=== PATIENT | male | born 1960 | race American Indian/Alaskan Native ===

== ENCOUNTER 2021-02-14 12:42 | Inpatient (IN) | payer BC ==
[2021-02-14] MEDS ORDERED: ASPIRIN 325 MG TAB PO ONE (12:48)
--- NOTE | 2021-02-14 13:27 | XRay Report ---
CHEST 2 VIEWS INDICATION / CLINICAL INFORMATION: Chest pain starting last night. COMPARISON: None available. FINDINGS: SUPPORT DEVICES: None. HEART / MEDIASTINUM: The heart size and pulmonary vasculature are normal. There is mild aortic tortuo sity without evidence of aneurysm. LUNGS / PLEURA: No significant pulmonary or pleural abnormality. No pneumothorax. ADDITIONAL FINDINGS: No significant additional findings. IMPRESSION: No acute findings. Signer Name: Lon Corrales MD Signed: 02/14/2021 1:22 PM Workstation Name: [id number]
[2021-02-14 13:47] LABS: Alanine Aminotransferase 16 units/L (7-56); BUN/Creatinine Ratio 13; Blood Urea Nitrogen 13 mg/dL (9-20); Calcium 8.8 mg/dL (8.4-10.2); Hemolysis Index 20
[2021-02-14 13:49] LABS: Eosinophils # (Auto) 0.1 K/mm3 (0.0-0.4); Eosinophils % (Auto) 1.9 % (0.0-4.3); Hematocrit 39.4 % (35.5-45.6); Mean Corpuscular HGB Conc 33 % (32-34); Mean Corpuscular Volume 81 fl (84-94); Monocytes # (Auto) 0.4 K/mm3 (0.0-0.8); Red Cell Distribution Width 13.8 % (13.2-15.2)
[2021-02-14 13:58] LABS: Lymphocytes # (Auto) 2.1 K/mm3 (1.2-5.4)
[2021-02-14 14:02] LABS: Basophils % (Auto) 0.4 % (0.0-1.8); Lymphocytes % (Auto) 42.7 % (13.4-35.0); Platelet Count 154 K/mm3 (140-440)
[2021-02-14] MEDS ORDERED: ALUM-MAG HYDROXIDE-SIMETHICONE 200-200-20MG/5ML ORAL LIQD 30 ML PO ONE (14:10)
[2021-02-14] MEDS ORDERED: LIDOCAINE VISCOUS 2% 15 ML ORAL LIQD PO ONE (14:10)
--- NOTE | 2021-02-14 14:14 | Emergency Department Report ---
ED Chest Pain HPI - General Chief Complaint: Chest Pain Stated Complaint: CHEST PAIN Time Seen by Provider: 02/14/21 14:00 Source: patient Mode of arrival: Ambulatory Limitations: No Limitations - History of Present Illness Initial Comments: This is a 60-year-old male presents to the emergency department with midsternal chest pain that started last night. It has been going on since but the intensity waxes and wanes. He denies any nausea, vomiting, shortness of breath, radiation of pain, back pain, diaphoresis. He has a history of asthma. He santiago es any tobacco or illicit drug use. He has not taken anything for his symptoms prior to presentation. He denies any family history of early heart attack or cardiac events. Severity scale (0 -10): 8 - Related Data Allergies Allergy/AdvReac Type Severity Reaction Status Date / Time No Known Allergies Allergy Unverified 02/14/21 12:44 Heart Score - HEART Score History: Moderately suspicious EKG: Normal Age: 45-65 Risk factors: No known risk factors Troponin: < normal limit HEART Score: 2 - EKG Read Time Time EKG Completed: 12:50 EKG Read Time: 12:55 ED Review of Systems ROS: Stated complaint: CHEST PAIN Other details as noted in HPI Comment: All other systems reviewed and negative Constitutional: denies: chills, fever Eyes: denies: eye pain, vision change ENT: denies: ear pain, throat pain Respiratory: denies: cough, shortness of breath Cardiovascular: chest pain. denies: palpitations Gastrointestinal: denies: abdominal pain, vomiting Genitourinary: denies: dysuria, discharge Musculoskeletal: denies: back pain, arthralgia Skin: denies: rash, lesions Neurological: denies: headache, weakness ED Past Medical Hx - Past Medical History Hx Asthma: Yes - Surgical History Past Surgical History?: No - Social History Smoking Status: Never Smoker ED Physical Exam - General Limitations: No Limitations - Other Other exam information: GENERAL: The patient is well-developed well-nourished. HENT: Normocephalic. Atraumatic. Patient has moist mucous membranes. EYES: Extraocular motions are intact. NECK: Supple. Trachea is midline. CHEST/LUNGS: Clear to auscultation. There is no respiratory distress noted. HEART/CARDIOVASCULAR: Regular. There is no tachycardia. There is no murmur. ABDOMEN: Abdomen is soft, nontender. Patient has normal bowel sounds. There is no abdominal distention. SKIN: Skin is warm and dry. NEURO: The patient is awake, alert, and oriented. The patient is cooperative. The patient has no focal neurologic deficits. Normal speech. MUSCULOSKELETAL: There is no tenderness or deformity. There is no limitation range of motion. ED Course Vital Signs 02/14/21 02/14/21 02/14/21 12:45 14:06 14:15 Temperature 98.3 F Pulse Rate 57 L 59 L 57 L Respiratory 20 12 21 Rate Blood Pressure 129/74 Blood Pressure 123/79 [Right] O2 Sat by Pulse 100 97 98 Oximetry 02/14/21 16:02 Temperature Pulse Rate 56 L Respiratory Rate Blood Pressure 144/55 Blood Pressure [Right] O2 Sat by Pulse Oximetry PAULETTE score - Paulette Score Age > 65: (0) No Aspirin use within the Past 7 Days: (0) No 3 or more CAD Risk Factors: (0) No 2 or more Angina events in past 24 hrs: (1) Yes Known CAD with more than 50% Stenosis: (0) No Elevated Cardiac Markers: (0) No ST Deviation Greater than 0.5mm: (0) No PAULETTE Score: 1 ED Medical Decision Making - Lab Data Result diagrams: 02/14/21 13:13 02/14/21 13:13 - EKG Data -: EKG Interpreted by Me EKG shows normal: sinus rhythm (PACs), axis, intervals, QRS complexes, ST-T waves Rate: bradycardia (58 bpm) - EKG Data When compared to previous EKG there are: previous EKG unavailable Interpretation: normal EKG (PACs, very mild bradycardia) - Radiology Data Radiology results: image reviewed interpreted by me: Chest x-ray does not show any acute process. There are no pleural effusions, obvious pneumonia and there is no pneumothorax. - Medical Decision Making This patient presents to the emergency department with complaint of midsternal chest pain that has been going on since last night. EKG does not show any morphology consistent with ST elevation myocardial infarction. Chest x-ray does not show any pneumonia, pleural effusions, pneumothorax, widened mediastinum, or any other acute process. The patient's labs have been unremarkable thus far including CBC, metabolic p libra and first troponin is negative. The second troponin is within normal limits but it has started to trend upwards from less than 0.01, now up to 0.019. The patient's chest pain is not reproducible to palpation of the chest wall. Given that the pain started after eating dinner and is midsternal, I attempted to treat a possible GI etiology with a GI cocktail, without any relief. Now, given that the troponin is starting to trend upwards, and the patient still complains of 7 out of 10 chest pain, the patient will be admitted to the hospital for further evaluation. He has been accepted for admission by the hospitalist, Dr. Pennington. Critical Care Time: No Critical care attestation.: If time is entered above; I have spent that time in minutes in the direct care of this critically ill patient, excluding procedure time. ED Disposition Clinical Impression: Acute chest pain, Angina at rest Disposition: DC-01 TO HOME OR SELFCARE Is pt being admited?: No Condition: Stable Instructions: Chest Pain (ED) Time of Disposition: 16:08
[2021-02-14] MEDS ORDERED: NITROGLYCERIN 0.4 MG TAB SUBL SL ONE (15:44)
[2021-02-14 19:51] LABS: Chol/HDL Ratio 2.88 %
[2021-02-14] MEDS ORDERED: HYDROmorphone 2 MG/1 ML INJ IV ONE (21:35)
[2021-02-14] MEDS ORDERED: ONDANSETRON 4 MG/2 ML INJ IV ONE (21:36)
--- NOTE | 2021-02-14 22:15 | History and Physical Report ---
History of Present Illness Date of examination: 02/14/21 Date of admission: 02/14/21 16:08 Chief complaint: Chest pain since last night. History of present illness: This is a 60-year-old male presents to emergency department with Chest pain since last night. Chest pain is intermittent in nature. No diaphoresis no shortness of breath. No radiation. No exacerbating or precipitating factors. Chest pain is about 5 on a scale of 1-10. Exacerbation is somewhat a accentuating factor. Rest is a relieving factor. No fever or chills. No exposure to coronavirus. Heart Score - HEART Score History: Moderately suspicious EKG: Normal Age: 45-65 Risk factors: No known risk factors Troponin: < normal limit HEART Score: 2 - EKG Read Time Time EKG Completed: 12:50 EKG Read Time: 12: - Past Medical History --Asthma: Yes - Surgical History Past Surgical History?: No - Social History Smoking Status: Never Smoker Review of Systems ROS: Stated complaint: CHEST PAIN Other details as noted in HPI Comment: All other systems reviewed and negative Constitutional: denies: chills, fever Eyes: denies: eye pain, vision change ENT: denies: ear pain, throat pain Respiratory: denies: cough, shortness of breath Cardiovascular: chest pain. denies: palpitations Gastrointestinal: denies: abdominal pain, vomiting Genitourinary: denies: dysuria, discharge Musculoskeletal: denies: back pain, arthralgia Skin: denies: rash, lesions Neurological: denies: headache, weakness Medications and Allergies Allergies Allergy/AdvReac Type Severity Reaction Status Date / Time No Known Allergies Allergy Unverified 02/14/21 12:44 Home Medications Medication Instructions Recorded Confirmed Last Taken Type Budesonide/Formoterol Fumarate 1 pfu INHALATION BID 02/15/21 02/15/21 2 Days Ago History [Budesonide-Formoterol 160-4.5] ~02/13/21 Montelukast [Singulair] 10 mg PO BID 02/15/21 02/15/21 2 Days Ago History ~02/13/21 Exam - Constitutional Vitals: Temp Pulse Resp BP Pulse Ox 98.3 F 56 L 14 144/55 94 02/14/21 12:45 02/14/21 16:02 02/14/21 15:45 02/14/21 19:30 02/14/21 19:30 General appearance: Present: no acute distress, well-nourished - EENT Eyes: Present: PERRL ENT: hearing intact, clear oral mucosa - Neck Neck: Present: supple, normal ROM - Respiratory Respiratory effort: normal Respiratory: bilateral: CTA - Cardiovascular Heart rate: 78 Rhythm: regular Heart Sounds: Present: S1 & S2. Absent: rub, click - Extremities Extremities: no ischemia, pulses intact, pulses symmetrical, No edema Peripheral Pulses: within normal limits - Abdominal General gastrointestinal: Present: soft, non-tender, non-distended, normal bowel sounds Male genitourinary: Present: normal - Integumentary Integumentary: Present: clear, warm, dry - Musculoskeletal Musculoskeletal: gait normal, strength equal bilaterally - Psychiatric Psychiatric: appropriate mood/affect, intact judgment & insight - Neurologic Neurologic: CNII-XII intact, moves all extremities - Allied Health Allied health notes reviewed: nursing, case management HEART Score - HEART Score EKG: Normal Age: 45-65 Risk factors: No known risk factors Troponin: Troponin T 0.083 ng/mL (0.00-0.029) H D 02/14/21 19:03 Troponin: < normal limit - Critical Actions Critical Actions: 0-3 pts:0.9-1.7%risk of adverse cardiac event.Candidate for discharge Results - Labs CBC & Chem 7: 02/15/21 05:18 02/15/21 05:18 Labs: Laboratory Last Values WBC 5.0 K/mm3 (4.5-11.0) 02/14/21 13:13 RBC 4.90 M/mm3 (3.65-5.03) 02/14/21 13:13 Hgb 13.0 gm/dl (11.8-15.2) 02/14/21 13:13 Hct 39.4 % (35.5-45.6) 02/14/21 13:13 MCV 81 fl (84-94) L 02/14/21 13:13 MCH 27 pg (28-32) L 02/14/21 13:13 MCHC 33 % (32-34) 02/14/21 13:13 RDW 13.8 % (13.2-15.2) 02/14/21 13:13 Plt Count 154 K/mm3 (140-440) 02/14/21 13:13 Lymph % (Auto) 42.7 % (13.4-35.0) H 02/14/21 13:13 [place] % (Auto) 8.0 % (0.0-7.3) H 02/14/21 13:13 Eos % (Auto) 1.9 % (0.0-4.3) 02/14/21 13:13 Baso % (Auto) 0.4 % (0.0-1.8) 02/14/21 13:13 Lymph # (Auto) 2.1 K/mm3 (1.2-5.4) 02/14/21 13:13 [place] # (Auto) 0.4 K/mm3 (0.0-0.8) 02/14/21 13:13 Eos # (Auto) 0.1 K/mm3 (0.0-0.4) 02/14/21 13:13 Baso # (Auto) 0.0 K/mm3 (0.0-0.1) 02/14/21 13:13 Seg Neutrophils % 47.0 % (40.0-70.0) 02/14/21 13:13 Seg Neutrophils # 2.3 K/mm3 (1.8-7.7) 02/14/21 13:13 Sodium 136 mmol/L (137-145) L 02/14/21 13:13 Potassium 3.9 mmol/L (3.6-5.0) 02/14/21 13:13 Chloride 102.1 mmol/L (98-107) 02/14/21 13:13 Carbon Dioxide 24 mmol/L (22-30) 02/14/21 13:13 Anion Gap 14 mmol/L 02/14/21 13:13 BUN 13 mg/dL (9-20) 02/14/21 13:13 Creatinine 1.0 mg/dL (0.8-1.3) 02/14/21 13:13 Estimated GFR > 60 ml/min 02/14/21 13:13 BUN/Creatinine Ratio 13 % 02/14/21 13:13 Glucose 107 mg/dL (75-100) H 02/14/21 13:13 Calcium 8.8 mg/dL (8.4-10.2) 02/14/21 13:13 Total Bilirubin 0.60 mg/dL (0.1-1.2) 02/14/21 13:13 AST 24 units/L (5-40) 02/14/21 13:13 ALT 16 units/L (7-56) 02/14/21 13:13 Alkaline Phosphatase 108 units/L (35-129) 02/14/21 13:13 Troponin T 0.083 ng/mL (0.00-0.029) H D 02/14/21 19:03 Total Protein 6.7 g/dL (6.3-8.2) 02/14/21 13:13 Albumin 4.0 g/dL (3.9-5) 02/14/21 13:13 Albumin/Globulin Ratio 1.5 % 02/14/21 13:13 Triglycerides 56 mg/dL (2-149) 02/14/21 19:03 Cholesterol 179 mg/dL (50-199) 02/14/21 19:03 LDL Cholesterol Direct 113 mg/dL (50-130) 02/14/21 19:03 HDL Cholesterol 62 mg/dL (40-59) H 02/14/21 19:03 Cholesterol/HDL Ratio 2.88 % 02/14/21 19:03 Short CBC 02/14/21 02/15/21 Range/Units 13:13 05:18 WBC 5.0 7.8 (4.5-11.0) K/mm3 Hgb 13.0 12.4 (11.8-15.2) gm/dl Hct 39.4 37.3 (35.5-45.6) % Plt Count 154 141 (140-440) K/mm3 BMP 02/14/21 02/15/21 13:13 05:18 Sodium 136 L 138 Potassium 3.9 3.8 Chloride 102.1 102.7 Carbon Dioxide 24 26 BUN 13 10 Creatinine 1.0 0.9 Glucose 107 H 136 H Calcium 8.8 9.0 Cardiac Enzymes 02/14/21 02/14/21 02/14/21 Range/Units 13:13 15:09 19:03 Troponin T < 0.010 0.019 0.083 H D (0.00-0.029) ng/mL Liver Function 02/14/21 02/15/21 Range/Units 13:13 05:18 Total Bilirubin 0.60 0.80 (0.1-1.2) mg/dL AST 24 67 H (5-40) units/L ALT 16 19 (7-56) units/L Alkaline Phosphatase 108 99 (35-129) units/L Albumin 4.0 3.8 L (3.9-5) g/dL - Imaging and Cardiology EKG: report reviewed (Normal sinus rhythm no acute ST-T wave changes) Imaging and Cardiology: Chest x-ray No acute findings Assessment and Plan Advance Directives: Yes (full code) VTE prophylaxis?: Chemical Plan of care discussed with patient/family: Yes - Patient Problems (1) Acute coronary syndrome Current Visit: Yes Status: Acute Plan to address problem: Serial troponins and Lexiscan in the morning If the troponins are negative and Lexiscan cannot be done over the weekend patient may be discharged and outpatient Lexiscan was done and the buzzsaw operator on-call's office Second troponin is CK and CK-MB ordered for specificity (2) DVT prophylaxis Current Visit: Yes Status: Acute Plan to address problem: On heparin and GI prophylaxis
[2021-02-14] MEDS ORDERED: oxyCODONE /ACETAMINOPHEN 5-325MG TAB PO PRN (22:16)
[2021-02-14] MEDS ORDERED: METOCLOPRAMIDE 10 MG/2 ML INJ IV PRN (22:16)
[2021-02-14] MEDS ORDERED: ONDANSETRON 4 MG/2 ML INJ IV PRN (22:16)
[2021-02-14] MEDS ORDERED: HYDROmorphone 1 MG/1 ML INJ IV PRN (22:16)
[2021-02-14] MEDS ORDERED: ACETAMINOPHEN 325 MG TAB PO PRN (22:16)
[2021-02-14] MEDS ORDERED: SODIUM CHLORIDE 0.9% 1000 ML 1,000 ML IV SCH (22:30)
[2021-02-14] MEDS: FAMOTIDINE 20 MG/2 ML INJ IV SCH (22:48)
[2021-02-15 05:55] LABS: Basophils % (Auto) 0.3 % (0.0-1.8); Eosinophils % (Auto) 0.1 % (0.0-4.3); Hematocrit 37.3 % (35.5-45.6); Hemoglobin 12.4 gm/dl (11.8-15.2); Lymphocytes # (Auto) 1.6 K/mm3 (1.2-5.4); Lymphocytes % (Auto) 20.3 % (13.4-35.0); Mean Corpuscular HGB Conc 33 % (32-34); Mean Corpuscular Volume 81 fl (84-94); Monocytes # (Auto) 0.5 K/mm3 (0.0-0.8); Monocytes % (Auto) 6.1 % (0.0-7.3); Platelet Count 141 K/mm3 (140-440); Red Blood Count 4.62 M/mm3 (3.65-5.03)
[2021-02-15 06:18] LABS: Alanine Aminotransferase 19 units/L (7-56); Albumin 3.8 g/dL (3.9-5); BUN/Creatinine Ratio 11; Blood Urea Nitrogen 10 mg/dL (9-20); Hemolysis Index 5
[2021-02-15] MEDS: FAMOTIDINE 20 MG/2 ML INJ IV SCH (09:54)
--- NOTE | 2021-02-15 10:14 | Progress Note ---
Assessment and Plan Assessment and plan: --Non-ST elevation LA Current Visit: Yes Status: Acute Worsening troponin levels Aspirin, no beta-blockers due to bradycardia Heart rate in 50s, GRACIELA inhibitors, nitrates Statin and morphine Serial cardiac enzymes, serial EKGs Echocardiogram for LV function ejection fraction Admitting physician requested Lexiscan[not done during the weekend] Cardiology consult[discussed with Dr. Franco Méndez [facility]] --Bradycardia; Current Visit: Yes Status: Acute Heart rate in 50s, hold beta-blockers Closely monitor, check thyroid panel --Dyslipidemia; Current Visit: Yes Status: Acute Lipitor, recommend low-cholesterol diet --GERD Current Visit: Yes Status: Acute IV Pepcid, supportive care --Obesity ; BMI 31.4 Current Visit: Yes Status: Acute Patient may need weight reduction when medically stable -- DVT prophylaxis Current Visit: Yes Status: Acute On heparin and GI prophylaxis Closely monitor the patient and adjust the management as needed Follow cardiology evaluation and recommendations History Interval history: I have seen and examined the patient at the bedside Patient's chart and medications reviewed Admitted with chest pain, scheduled for Lexiscan stress test However the test is not done today being the weekend Patient complains of retrosternal discomfort intermittent Feels probably indigestion Vital signs noted Hospitalist Physical - Constitutional Vitals: Temp Pulse Resp BP Pulse Ox 98.0 F 57 L 20 108/60 98 02/15/21 07:35 02/15/21 07:35 02/15/21 07:35 02/15/21 07:35 02/15/21 07:35 General appearance: Present: no acute distress, well-nourished - EENT Eyes: Present: PERRL, EOM intact - Neck Neck: Present: supple, normal ROM - Respiratory Respiratory effort: normal Respiratory: bilateral: diminished, negative: rales, rhonchi, wheezing - Cardiovascular Rhythm: regular Heart Sounds: Present: S1 & S2 - Extremities Extremities: no ischemia, No edema - Abdominal General gastrointestinal: soft, non-tender, non-distended - Integumentary Integumentary: Present: clear, warm - Psychiatric Psychiatric: appropriate mood/affect, cooperative - Neurologic Neurologic: moves all extremities HEART Score - HEART Score EKG: Normal Age: 45-65 Risk factors: No known risk factors Troponin: Troponin T 0.083 ng/mL (0.00-0.029) H D 02/14/21 19:03 Troponin: < normal limit - Critical Actions Critical Actions: 0-3 pts:0.9-1.7%risk of adverse cardiac event.Candidate for discharge Results - Labs CBC & Chem 7: 02/15/21 05:18 02/15/21 05:18 Labs: Laboratory Last Values WBC 7.8 K/mm3 (4.5-11.0) 02/15/21 05:18 RBC 4.62 M/mm3 (3.65-5.03) 02/15/21 05:18 Hgb 12.4 gm/dl (11.8-15.2) 02/15/21 05:18 Hct 37.3 % (35.5-45.6) 02/15/21 05:18 MCV 81 fl (84-94) L 02/15/21 05:18 MCH 27 pg (28-32) L 02/15/21 05:18 MCHC 33 % (32-34) 02/15/21 05:18 RDW 14.0 % (13.2-15.2) 02/15/21 05:18 Plt Count 141 K/mm3 (140-440) 02/15/21 05:18 Lymph % (Auto) 20.3 % (13.4-35.0) 02/15/21 05:18 [place] % (Auto) 6.1 % (0.0-7.3) 02/15/21 05:18 Eos % (Auto) 0.1 % (0.0-4.3) 02/15/21 05:18 Baso % (Auto) 0.3 % (0.0-1.8) 02/15/21 05:18 Lymph # (Auto) 1.6 K/mm3 (1.2-5.4) 02/15/21 05:18 [place] # (Auto) 0.5 K/mm3 (0.0-0.8) 02/15/21 05:18 Eos # (Auto) 0.0 K/mm3 (0.0-0.4) 02/15/21 05:18 Baso # (Auto) 0.0 K/mm3 (0.0-0.1) 02/15/21 05:18 Seg Neutrophils % 73.2 % (40.0-70.0) H 02/15/21 05:18 Seg Neutrophils # 5.7 K/mm3 (1.8-7.7) 02/15/21 05:18 Sodium 138 mmol/L (137-145) 02/15/21 05:18 Potassium 3.8 mmol/L (3.6-5.0) 02/15/21 05:18 Chloride 102.7 mmol/L (98-107) 02/15/21 05:18 Carbon Dioxide 26 mmol/L (22-30) 02/15/21 05:18 Anion Gap 13 mmol/L 02/15/21 05:18 BUN 10 mg/dL (9-20) 02/15/21 05:18 Creatinine 0.9 mg/dL (0.8-1.3) 02/15/21 05:18 Estimated GFR > 60 ml/min 02/15/21 05:18 BUN/Creatinine Ratio 11 % 02/15/21 05:18 Glucose 136 mg/dL (75-100) H 02/15/21 05:18 Hemoglobin A1c 5.6 % (4-6) 02/15/21 05:18 Calcium 9.0 mg/dL (8.4-10.2) 02/15/21 05:18 Total Bilirubin 0.80 mg/dL (0.1-1.2) 02/15/21 05:18 AST 67 units/L (5-40) H 02/15/21 05:18 ALT 19 units/L (7-56) 02/15/21 05:18 Alkaline Phosphatase 99 units/L (35-129) 02/15/21 05:18 Troponin T 0.083 ng/mL (0.00-0.029) H D 02/14/21 19:03 Total Protein 6.2 g/dL (6.3-8.2) L 02/15/21 05:18 Albumin 3.8 g/dL (3.9-5) L 02/15/21 05:18 Albumin/Globulin Ratio 1.6 % 02/15/21 05:18 Triglycerides 56 mg/dL (2-149) 02/14/21 19:03 Cholesterol 179 mg/dL (50-199) 02/14/21 19:03 LDL Cholesterol Direct 113 mg/dL (50-130) 02/14/21 19:03 HDL Cholesterol 62 mg/dL (40-59) H 02/14/21 19:03 Cholesterol/HDL Ratio 2.88 % 02/14/21 19:03 Ann/IV: Voiding Method Toilet Active Medications - Current Medications Current Medications: Generic Name Dose Route Start Last Admin Trade Name Freq PRN Reason Stop Dose Admin Acetaminophen 650 mg 02/14/21 22:16 Acetaminophen 325 Mg Tab PO Q4H PRN Pain MILD(1-3)/Fever >100.5/SAGE Famotidine 20 mg 02/14/21 23:00 02/15/21 09:54 Famotidine 20 Mg/2 Ml Inj IV 20 mg BID WATSON Administration Hydromorphone HCl 0.5 mg 02/14/21 22:16 Hydromorphone 1 Mg/1 Ml Inj IV Q3H PRN Pain , Severe (7-10) Sodium Chloride 1,000 mls @ 100 mls/hr 02/14/21 22:30 02/15/21 07:27 Nacl 0.9% 1000 Ml IV 100 mls/hr DIRECT WATSON Administration Metoclopramide HCl 10 mg 02/14/21 22:16 Metoclopramide 10 Mg/2 Ml Inj IV Q6H PRN Nausea And Vomiting Ondansetron HCl 4 mg 02/14/21 22:16 Ondansetron 4 Mg/2 Ml Inj IV Q8H PRN Nausea And Vomiting Oxycodone/Acetaminophen 1 tab 02/14/21 22:16 Oxycodone /Acetaminophen 5-325mg Tab PO Q6H PRN Pain, Moderate (4-6) Sodium Chloride 10 ml 02/15/21 10:00 Sodium Chloride 0.9% 10 Ml Flush Syringe IV BID WATSON Sodium Chloride 10 ml 02/14/21 22:16 Sodium Chloride 0.9% 10 Ml Flush Syringe IV PRN PRN LINE FLUSH
[2021-02-15 11:34] LABS: Creatine Kinase MB 61.3 ng/mL (0.0-4.0)
--- NOTE | 2021-02-15 12:51 | Consultation ---
History of Present Illness Consult date: 02/15/21 Consult reason: abnormal cardiac enzymes, chest pain History of present illness: The patient is a 60-year-old man who reports no significant cardiac or medical history, presented to the emergency room with 2 days of intermittent substernal chest pain associated with nausea and vomiting. In the emergency room, the ECG was a sinus bradycardia 58, otherwise normal ECG. Initial 2 cardiac enzymes were unremarkable, but on the third set, there was an elevation of his troponin level, suggesting a non-ST elevation myocardial infarction. The patient is currently chest pain-free, on telemetry unit looks and feels well, cardiac cons ultation was requested for further evaluation. Past History Past Medical History: other (No significant cardiac or medical history) Medications and Allergies Allergies Allergy/AdvReac Type Severity Reaction Status Date / Time No Known Allergies Allergy Unverified 02/14/21 12:44 Home Medications Medication Instructions Recorded Confirmed Last Taken Type Budesonide/Formoterol Fumarate 1 pfu INHALATION BID 02/15/21 02/15/21 2 Days Ago History [Budesonide-Formoterol 160-4.5] ~02/13/21 Montelukast [Singulair] 10 mg PO BID 02/15/21 02/15/21 2 Days Ago History ~02/13/21 Active Meds: Active Medications Acetaminophen (Acetaminophen 325 Mg Tab) 650 mg PO Q4H PRN PRN Reason: Pain MILD(1-3)/Fever >100.5/SAGE Aspirin (Aspirin Ec 325 Mg Tab) 325 mg PO QDAY [facility] Enoxaparin Sodium (Enoxaparin 100 Mg/1 Ml Inj) 90 mg 1 mg/kg (90 mg) SUB-Q Q12HR [facility]; Protocol Famotidine (Famotidine 20 Mg/2 Ml Inj) 20 mg IV BID [facility] Last Admin: 02/15/21 09:54 Dose: 20 mg Documented by: Hydromorphone HCl (Hydromorphone 1 Mg/1 Ml Inj) 0.5 mg IV Q3H PRN PRN Reason: Pain , Severe (7-10) Sodium Chloride (Nacl 0.9% 1000 Ml) 1,000 mls @ 100 mls/hr IV DIRECT [facility] Last Admin: 02/15/21 07:27 Dose: 100 mls/hr Documented by: Metoclopramide HCl (Metoclopramide 10 Mg/2 Ml Inj) 10 mg IV Q6H PRN PRN Reason: Nausea And Vomiting Ondansetron HCl (Ondansetron 4 Mg/2 Ml Inj) 4 mg IV Q8H PRN PRN Reason: Nausea And Vomiting Oxycodone/Acetaminophen (Oxycodone /Acetaminophen 5-325mg Tab) 1 tab PO Q6H PRN PRN Reason: Pain, Moderate (4-6) Sodium Chloride (Sodium Chloride 0.9% 10 Ml Flush Syringe) 10 ml IV BID WATSON Sodium Chloride (Sodium Chloride 0.9% 10 Ml Flush Syringe) 10 ml IV PRN PRN PRN Reason: LINE FLUSH Review of Systems Cardiovascular: chest pain, no orthopnea, no palpitations, no rapid/irregular heart beat, no edema, no syncope, no lightheadedness, no shortness of breath Physical Examination Vital Signs Temp Pulse Resp BP Pulse Ox 98.3 F 57 L 20 123/79 100 02/14/21 12:45 02/14/21 12:45 02/14/21 12:45 02/14/21 12:45 02/14/21 12:45 General appearance: no acute distress HEENT: Positive: PERRL Neck: Positive: neck supple Cardiac: Positive: Reg Rate and Rhythm Lungs: Positive: clear to auscultation Neuro: Positive: Grossly Intact Abdomen: Positive: Soft Male genitourinary: Positive: deferred Skin: Positive: Clear Extremities: Absent: edema Results 02/15/21 05:18 02/15/21 05:18 Cardiac Enzymes 02/14/21 02/15/21 02/15/21 Range/Units 13:13 05:18 10:56 AST 24 67 H (5-40) units/L CK-MB (CK-2) 61.3 H (0.0-4.0) ng/mL Lipids 02/14/21 Range/Units 19:03 Triglycerides 56 (2-149) mg/dL Cholesterol 179 (50-199) mg/dL HDL Cholesterol 62 H (40-59) mg/dL Cholesterol/HDL Ratio 2.88 % CBC 02/14/21 02/15/21 Range/Units 13:13 05:18 WBC 5.0 7.8 (4.5-11.0) K/mm3 RBC 4.90 4.62 (3.65-5.03) M/mm3 Hgb 13.0 12.4 (11.8-15.2) gm/dl Hct 39.4 37.3 (35.5-45.6) % Plt Count 154 141 (140-440) K/mm3 Lymph # (Auto) 2.1 1.6 (1.2-5.4) K/mm3 [place] # (Auto) 0.4 0.5 (0.0-0.8) K/mm3 Eos # (Auto) 0.1 0.0 (0.0-0.4) K/mm3 Baso # (Auto) 0.0 0.0 (0.0-0.1) K/mm3 Comprehensive Metabolic Panel 02/14/21 02/15/21 Range/Units 13:13 05:18 Sodium 136 L 138 (137-145) mmol/L Potassium 3.9 3.8 (3.6-5.0) mmol/L Chloride 102.1 102.7 (98-107) mmol/L Carbon Dioxide 24 26 (22-30) mmol/L BUN 13 10 (9-20) mg/dL Creatinine 1.0 0.9 (0.8-1.3) mg/dL Glucose 107 H 136 H (75-100) mg/dL Calcium 8.8 9.0 (8.4-10.2) mg/dL AST 24 67 H (5-40) units/L ALT 16 19 (7-56) units/L Alkaline Phosphatase 108 99 (35-129) units/L Total Protein 6.7 6.2 L (6.3-8.2) g/dL Albumin 4.0 3.8 L (3.9-5) g/dL EKG interpretations - Telemetry EKG Rhythm: Sinus Bradycardia Assessment and Plan - Patient Problems (1) Non-ST elevation myocardial infarction (NSTEMI) Current Visit: Yes Status: Acute Plan to address problem: The patient will be treated with subcutaneous Lovenox, aspirin, Plavix, topical nitrates and atorvastatin. He will be placed on bedrest with commode privileges. An echocardiogram will be done for left ventricular function and valvular function assessment. We will schedule a cardiac catheterization for Wednesday morning. We have avoided beta-blockers for now due to the patient's underlying sinus bradycardia.
[2021-02-15] MEDS ORDERED: SODIUM CHLORIDE 0.9% 500 ML 500 ML IV SCH (13:00)
[2021-02-15] MEDS ORDERED: CLOPIDOGREL 300 MG TAB PO ONE (14:00)
[2021-02-15] MEDS: PANTOPRAZOLE 40 MG TAB PO SCH (14:28)
[2021-02-15] MEDS: NITROGLYCERIN 2% OINT 1 GM TP SCH ×2 (14:28→18:34)
[2021-02-15] MEDS: ASPIRIN EC 325 MG TAB PO SCH (14:28)
[2021-02-15 14:36] LABS: Free T4 (Free Thyroxine) 0.87 ng/dL (0.76-1.46)
[2021-02-15] MEDS ORDERED: NON-FORMULARY EACH (Budesonide/Formoterol Fumarate [Budesonide-Formoterol 160-4.5] 10.2 GM INHALATION SCH (14:45)
[2021-02-15] MEDS: ARFORMOTEROL 15 MCG/2 ML NEBU IH SCH (20:45)
[2021-02-15] MEDS: BUDESONIDE 0.5 MG/2 ML NEBU IH SCH (20:45)
[2021-02-15] MEDS: ENOXAPARIN 100 MG/1 ML INJ SUB-Q SCH (22:41)
[2021-02-15] MEDS: MONTELUKAST 10 MG TAB PO SCH (22:42)
[2021-02-16 05:36] LABS: Hematocrit 40.1 % (35.5-45.6); Hemoglobin 13.2 gm/dl (11.8-15.2)
[2021-02-16 05:56] LABS: Creatine Kinase MB 18.7 ng/mL (0.0-4.0)
[2021-02-16] MEDS: NITROGLYCERIN 2% OINT 1 GM TP SCH ×3 (06:09→13:16)
[2021-02-16] MEDS: BUDESONIDE 0.5 MG/2 ML NEBU IH SCH ×2 (08:59→20:38)
[2021-02-16] MEDS: ARFORMOTEROL 15 MCG/2 ML NEBU IH SCH ×2 (08:59→20:38)
--- NOTE | 2021-02-16 09:08 | Progress Note ---
Assessment and Plan Assessment and plan: --Non-ST elevation [place] Current Visit: Yes Status: Acute Worsening troponin levels Aspirin, no beta-blockers due to bradycardia Heart rate in 50s, GRACIELA inhibitors, nitrates Statin and morphine Serial cardiac enzymes, serial EKGs Echocardiogram for LV function ejection fraction Cardiology following, possible left heart catheterization tomorrow 02/17/2021 N.p.o. from midnight --Bradycardia; Current Visit: Yes Status: Acute Heart rate in 50s, hold beta-blockers Closely monitor, check thyroid panel --Dyslipidemia; Current Visit: Yes Status: Acute Lipitor, recommend low-cholesterol diet --GERD Current Visit: Yes Status: Acute IV Pepcid, supportive care --Obesity ; BMI 31.4 Current Visit: Yes Status: Acute Patient may need weight reduction when medically stable -- DVT prophylaxis Current Visit: Yes Status: Acute On heparin and GI prophylaxis Closely monitor the patient and adjust the management as needed Possible heart cath tomorrow, n.p.o. from midnight Follow cardiology recommendations Plan of care reviewed with the patient and his nurse 02/16/2021; non-ST elevation MA, worsening cardiac enzymes On therapeutic dose Lovenox, cardiology scheduled for left heart catheterization tomorrow Continue current management History Interval history: I have seen and examined the patient at the bedside Patient's chart and medications reviewed Patient feels better denies chest pain or shortness of breath However patient's troponins are still elevated Cardiology evaluation noted and appreciated Possible heart cath tomorrow N.p.o. from midnight Vital signs noted Hospitalist Physical - Constitutional Vitals: Temp Pulse Resp BP Pulse Ox 98.8 F 58 L 20 94/56 97 02/16/21 07:57 02/16/21 07:57 02/16/21 07:57 02/16/21 07:57 02/16/21 07:57 General appearance: Present: no acute distress, well-nourished - EENT Eyes: Present: PERRL, EOM intact - Neck Neck: Present: supple, normal ROM - Respiratory Respiratory effort: normal Respiratory: bilateral: diminished, negative: rales, rhonchi, wheezing - Cardiovascular Rhythm: regular Heart Sounds: Present: S1 & S2 - Extremities Extremities: no ischemia, No edema - Abdominal General gastrointestinal: soft, non-tender, non-distended - Integumentary Integumentary: Present: clear, warm - Psychiatric Psychiatric: appropriate mood/affect, cooperative - Neurologic Neurologic: CNII-XII intact, moves all extremities HEART Score - HEART Score EKG: Normal Age: 45-65 Risk factors: No known risk factors Troponin: Troponin T 1.080 ng/mL (0.00-0.029) H* D 02/16/21 05:11 Troponin: < normal limit - Critical Actions Critical Actions: 0-3 pts:0.9-1.7%risk of adverse cardiac event.Candidate for discharge Results - Labs CBC & Chem 7: 02/16/21 05:11 02/15/21 05:18 Labs: Laboratory Last Values WBC 7.8 K/mm3 (4.5-11.0) 02/15/21 05:18 RBC 4.62 M/mm3 (3.65-5.03) 02/15/21 05:18 Hgb 13.2 gm/dl (11.8-15.2) 02/16/21 05:11 Hct 40.1 % (35.5-45.6) 02/16/21 05:11 MCV 81 fl (84-94) L 02/15/21 05:18 MCH 27 pg (28-32) L 02/15/21 05:18 MCHC 33 % (32-34) 02/15/21 05:18 RDW 14.0 % (13.2-15.2) 02/15/21 05:18 Plt Count 141 K/mm3 (140-440) 02/15/21 05:18 Lymph % (Auto) 20.3 % (13.4-35.0) 02/15/21 05:18 [place] % (Auto) 6.1 % (0.0-7.3) 02/15/21 05:18 Eos % (Auto) 0.1 % (0.0-4.3) 02/15/21 05:18 Baso % (Auto) 0.3 % (0.0-1.8) 02/15/21 05:18 Lymph # (Auto) 1.6 K/mm3 (1.2-5.4) 02/15/21 05:18 [place] # (Auto) 0.5 K/mm3 (0.0-0.8) 02/15/21 05:18 Eos # (Auto) 0.0 K/mm3 (0.0-0.4) 02/15/21 05:18 Baso # (Auto) 0.0 K/mm3 (0.0-0.1) 02/15/21 05:18 Seg Neutrophils % 73.2 % (40.0-70.0) H 02/15/21 05:18 Seg Neutrophils # 5.7 K/mm3 (1.8-7.7) 02/15/21 05:18 Sodium 138 mmol/L (137-145) 02/15/21 05:18 Potassium 3.8 mmol/L (3.6-5.0) 02/15/21 05:18 Chloride 102.7 mmol/L (98-107) 02/15/21 05:18 Carbon Dioxide 26 mmol/L (22-30) 02/15/21 05:18 Anion Gap 13 mmol/L 02/15/21 05:18 BUN 10 mg/dL (9-20) 02/15/21 05:18 Creatinine 0.9 mg/dL (0.8-1.3) 02/15/21 05:18 Estimated GFR > 60 ml/min 02/15/21 05:18 BUN/Creatinine Ratio 11 % 02/15/21 05:18 Glucose 136 mg/dL (75-100) H 02/15/21 05:18 Hemoglobin A1c 5.6 % (4-6) 02/15/21 05:18 Calcium 9.0 mg/dL (8.4-10.2) 02/15/21 05:18 Magnesium 1.70 mg/dL (1.7-2.3) 02/16/21 05:11 Total Bilirubin 0.80 mg/dL (0.1-1.2) 02/15/21 05:18 AST 67 units/L (5-40) H 02/15/21 05:18 ALT 19 units/L (7-56) 02/15/21 05:18 Alkaline Phosphatase 99 units/L (35-129) 02/15/21 05:18 Total Creatine Kinase 637 units/L (55-170) H 02/16/21 05:11 CK-MB (CK-2) 18.7 ng/mL (0.0-4.0) H 02/16/21 05:11 CK-MB (CK-2) Rel Index 2.9 (0-4) 02/16/21 05:11 Troponin T 1.080 ng/mL (0.00-0.029) H* D 02/16/21 05:11 Total Protein 6.2 g/dL (6.3-8.2) L 02/15/21 05:18 Albumin 3.8 g/dL (3.9-5) L 02/15/21 05:18 Albumin/Globulin Ratio 1.6 % 02/15/21 05:18 Triglycerides 56 mg/dL (2-149) 02/14/21 19:03 Cholesterol 179 mg/dL (50-199) 02/14/21 19:03 LDL Cholesterol Direct 113 mg/dL (50-130) 02/14/21 19:03 HDL Cholesterol 62 mg/dL (40-59) H 02/14/21 19:03 Cholesterol/HDL Ratio 2.88 % 02/14/21 19:03 TSH 0.641 mlU/mL (0.270-4.200) 02/15/21 13:28 Free T4 0.87 ng/dL (0.76-1.46) 02/15/21 13:28 Ann/IV: Voiding Method Toilet Active Medications - Current Medications Current Medications: Generic Name Dose Route Start Last Admin Trade Name Freq PRN Reason Stop Dose Admin Acetaminophen 650 mg 02/14/21 22:16 Acetaminophen 325 Mg Tab PO Q4H PRN Pain MILD(1-3)/Fever >100.5/SAGE Arformoterol Tartrate 15 mcg 02/15/21 20:00 02/16/21 08:59 Arformoterol 15 Mcg/2 Ml Nebu IH 15 mcg Q12HRT [facility]AT[facility] Administration Aspirin 325 mg 02/15/21 13:00 02/15/21 14:28 Aspirin Ec 325 Mg Tab PO 325 mg QDAY [facility] Administration Atorvastatin Calcium 40 mg 02/15/21 22:00 02/15/21 22:42 Atorvastatin 40 Mg Tab PO 40 mg QHS [facility] Administration Budesonide 1 mg 02/15/21 20:00 02/16/21 08:59 Budesonide 0.5 Mg/2 Ml Nebu IH 1 mg Q12HRT [facility] Administration Clopidogrel Bisulfate 75 mg 02/16/21 10:00 Clopidogrel 75 Mg Tab PO QDAY WATSON Enoxaparin Sodium 90 mg 02/15/21 22:00 02/15/21 22:41 Enoxaparin 100 Mg/1 Ml Inj 1 mg/kg (90 mg) 90 mg SUB-Q Administration Q12HR [facility] Protocol Hydromorphone HCl 0.5 mg 02/14/21 22:16 Hydromorphone 1 Mg/1 Ml Inj IV Q3H PRN Pain , Severe (7-10) Sodium Chloride 500 mls @ 50 mls/hr 02/16/21 13:00 Nacl 0.45% IV DIRECT WATSON Metoclopramide HCl 10 mg 02/14/21 22:16 Metoclopramide 10 Mg/2 Ml Inj IV Q6H PRN Nausea And Vomiting Montelukast Sodium 10 mg 02/15/21 15:00 02/15/21 22:42 Montelukast 10 Mg Tab PO 10 mg BID [facility]ATSON Administration Nitroglycerin 1 inch 02/15/21 14:00 02/16/21 06:09 Nitroglycerin 2% Oint 1 Gm TP Not Given QIDNTG [facility] Protocol Ondansetron HCl 4 mg 02/14/21 22:16 Ondansetron 4 Mg/2 Ml Inj IV Q8H PRN Nausea And Vomiting Oxycodone/Acetaminophen 1 tab 02/14/21 22:16 Oxycodone /Acetaminophen 5-325mg Tab PO Q6H PRN Pain, Moderate (4-6) Pantoprazole Sodium 40 mg 02/15/21 13:00 02/15/21 14:28 Pantoprazole 40 Mg Tab PO 40 mg QDAC [facility] Administration Sodium Chloride 10 ml 02/15/21 10:00 02/15/21 22:42 Sodium Chloride 0.9% 10 Ml Flush Syringe IV 10 ml BID WATSON Administration Sodium Chloride 10 ml 02/14/21 22:16 Sodium Chloride 0.9% 10 Ml Flush Syringe IV PRN PRN LINE FLUSH
[2021-02-16] MEDS: CLOPIDOGREL 75 MG TAB PO SCH (10:12)
[2021-02-16] MEDS: ASPIRIN EC 325 MG TAB PO SCH (10:12)
[2021-02-16] MEDS: MONTELUKAST 10 MG TAB PO SCH (10:12)
[2021-02-16] MEDS: ENOXAPARIN 100 MG/1 ML INJ SUB-Q SCH ×2 (10:13→21:56)
[2021-02-16] MEDS: PANTOPRAZOLE 40 MG TAB PO SCH (10:16)
--- NOTE | 2021-02-16 11:42 | Progress Note ---
Assessment and Plan - Patient Problems (1) Non-ST elevation myocardial infarction (NSTEMI) Current Visit: Yes Status: Acute Subjective Date of service: 02/16/21 Interval history: NO C/O AT THIS TIME,,,,,,,,,,,,,,,,,DESCRIBES AN ATHEROSCLEROTIC -CAUSING DIET. Objective Vital Signs Temp Pulse Pulse Resp Resp BP Pulse Ox 02/16/21 08:59 65 18 02/16/21 07:57 98.8 F 58 L 20 94/56 97 02/16/21 06:00 56 L 02/16/21 03:43 98.0 F 60 18 117/74 97 02/15/21 23:33 98.0 F 56 L 18 104/67 96 02/15/21 22:00 56 L 02/15/21 20:45 87 18 02/15/21 19:00 98.6 F 60 18 110/65 98 02/15/21 15:33 98.0 F 59 L 20 112/63 98 02/15/21 14:00 60 - Physical Examination General: No Apparent Distress HEENT: Positive: PERRL Neck: Positive: neck supple Cardiac: Positive: Reg Rate and Rhythm, S4 Lungs: Positive: clear to auscultation Neuro: Positive: Grossly Intact Abdomen: Positive: Soft Skin: Positive: Clear Extremities: Absent: edema - Labs and Meds Cardiac Enzymes 02/16/21 Range/Units 05:11 CK-MB (CK-2) 18.7 H (0.0-4.0) ng/mL CBC 02/16/21 Range/Units 05:11 Hgb 13.2 (11.8-15.2) gm/dl Hct 40.1 (35.5-45.6) % - Imaging and Cardiology EKG: report reviewed (Normal sinus rhythm no acute ST-T wave changes)
[2021-02-16] MEDS ORDERED: SODIUM CHLORIDE 0.45% 500 ML IV SCH (13:00)
[2021-02-17] MEDS: NITROGLYCERIN 2% OINT 1 GM TP SCH ×3 (07:02→18:39)
[2021-02-17] MEDS: MONTELUKAST 10 MG TAB PO SCH ×3 (07:05→13:11)
--- NOTE | 2021-02-17 08:28 | Progress Note ---
Assessment and Plan Assessment and plan: --Non-ST elevation [place] Current Visit: Yes Status: Acute Worsening troponin levels Aspirin, no beta-blockers due to bradycardia Heart rate in 50s, GRACIELA inhibitors, nitrates Statin and morphine Cardiology evaluated, optimize medications, left heart cath today N.p.o. from midnight --Bradycardia; Current Visit: Yes Status: Acute Heart rate in 50s, hold beta-blockers Thyroid panel reviewed --Dyslipidemia; Current Visit: Yes Status: Acute Lipitor, recommend low-cholesterol diet --GERD Current Visit: Yes Status: Acute IV Pepcid, supportive care --Obesity ; BMI 31.4 Current Visit: Yes Status: Acute Patient may need weight reduction when medically stable -- DVT prophylaxis Current Visit: Yes Status: Acute On heparin and GI prophylaxis Closely monitor the patient and adjust the management as needed Possible heart cath tomorrow, n.p.o. from midnight Follow cardiology recommendations Plan of care reviewed with the patient and his nurse 02/16/2021; non-ST elevation [place], worsening cardiac enzymes On therapeutic dose Lovenox, cardiology scheduled for left heart catheterization tomorrow Continue current management 02/17/2021; heart cath today Continue current cardiac meds If cath is negative and patient is stable may discharge home this evening Disposition per cardiology History Interval history: Patient is scheduled for left heart catheterization today per cardiology Patient is n.p.o. status, Denies chest pain or shortness of breath Vital signs noted Hospitalist Physical - Constitutional Vitals: Temp Pulse Resp BP Pulse Ox 98.3 F 63 18 92/63 96 02/17/21 07:49 02/17/21 07:49 02/17/21 07:49 02/17/21 07:49 02/17/21 07:49 General appearance: Present: no acute distress, well-nourished - EENT Eyes: Present: PERRL, EOM intact - Neck Neck: Present: supple, normal ROM - Respiratory Respiratory effort: normal Respiratory: bilateral: diminished, negative: rales, rhonchi, wheezing - Cardiovascular Rhythm: regular Heart Sounds: Present: S1 & S2 - Extremities Extremities: no ischemia, No edema - Abdominal General gastrointestinal: soft, non-tender, non-distended, normal bowel sounds - Integumentary Integumentary: Present: clear, warm - Psychiatric Psychiatric: appropriate mood/affect, cooperative - Neurologic Neurologic: CNII-XII intact, moves all extremities HEART Score - HEART Score EKG: Normal Age: 45-65 Risk factors: No known risk factors Troponin: Troponin T 1.080 ng/mL (0.00-0.029) H* D 02/16/21 05:11 Troponin: < normal limit - Critical Actions Critical Actions: 0-3 pts:0.9-1.7%risk of adverse cardiac event.Candidate for discharge Results - Labs CBC & Chem 7: 02/16/21 05:11 02/17/21 10:27 Labs: Laboratory Last Values WBC 7.8 K/mm3 (4.5-11.0) 02/15/21 05:18 RBC 4.62 M/mm3 (3.65-5.03) 02/15/21 05:18 Hgb 13.2 gm/dl (11.8-15.2) 02/16/21 05:11 Hct 40.1 % (35.5-45.6) 02/16/21 05:11 MCV 81 fl (84-94) L 02/15/21 05:18 MCH 27 pg (28-32) L 02/15/21 05:18 MCHC 33 % (32-34) 02/15/21 05:18 RDW 14.0 % (13.2-15.2) 02/15/21 05:18 Plt Count 141 K/mm3 (140-440) 02/15/21 05:18 Lymph % (Auto) 20.3 % (13.4-35.0) 02/15/21 05:18 [place] % (Auto) 6.1 % (0.0-7.3) 02/15/21 05:18 Eos % (Auto) 0.1 % (0.0-4.3) 02/15/21 05:18 Baso % (Auto) 0.3 % (0.0-1.8) 02/15/21 05:18 Lymph # (Auto) 1.6 K/mm3 (1.2-5.4) 02/15/21 05:18 [place] # (Auto) 0.5 K/mm3 (0.0-0.8) 02/15/21 05:18 Eos # (Auto) 0.0 K/mm3 (0.0-0.4) 02/15/21 05:18 Baso # (Auto) 0.0 K/mm3 (0.0-0.1) 02/15/21 05:18 Seg Neutrophils % 73.2 % (40.0-70.0) H 02/15/21 05:18 Seg Neutrophils # 5.7 K/mm3 (1.8-7.7) 02/15/21 05:18 Sodium 138 mmol/L (137-145) 02/15/21 05:18 Potassium 3.8 mmol/L (3.6-5.0) 02/15/21 05:18 Chloride 102.7 mmol/L (98-107) 02/15/21 05:18 Carbon Dioxide 26 mmol/L (22-30) 02/15/21 05:18 Anion Gap 13 mmol/L 02/15/21 05:18 BUN 10 mg/dL (9-20) 02/15/21 05:18 Creatinine 0.9 mg/dL (0.8-1.3) 02/15/21 05:18 Estimated GFR > 60 ml/min 02/15/21 05:18 BUN/Creatinine Ratio 11 % 02/15/21 05:18 Glucose 136 mg/dL (75-100) H 02/15/21 05:18 POC Glucose 93 mg/dL (70-105) 02/17/21 05:15 Hemoglobin A1c 5.6 % (4-6) 02/15/21 05:18 Calcium 9.0 mg/dL (8.4-10.2) 02/15/21 05:18 Magnesium 1.70 mg/dL (1.7-2.3) 02/16/21 05:11 Total Bilirubin 0.80 mg/dL (0.1-1.2) 02/15/21 05:18 AST 67 units/L (5-40) H 02/15/21 05:18 ALT 19 units/L (7-56) 02/15/21 05:18 Alkaline Phosphatase 99 units/L (35-129) 02/15/21 05:18 Total Creatine Kinase 637 units/L (55-170) H 02/16/21 05:11 CK-MB (CK-2) 18.7 ng/mL (0.0-4.0) H 02/16/21 05:11 CK-MB (CK-2) Rel Index 2.9 (0-4) 02/16/21 05:11 Troponin T 1.080 ng/mL (0.00-0.029) H* D 02/16/21 05:11 Total Protein 6.2 g/dL (6.3-8.2) L 02/15/21 05:18 Albumin 3.8 g/dL (3.9-5) L 02/15/21 05:18 Albumin/Globulin Ratio 1.6 % 02/15/21 05:18 Triglycerides 56 mg/dL (2-149) 02/14/21 19:03 Cholesterol 179 mg/dL (50-199) 02/14/21 19:03 LDL Cholesterol Direct 113 mg/dL (50-130) 02/14/21 19:03 HDL Cholesterol 62 mg/dL (40-59) H 02/14/21 19:03 Cholesterol/HDL Ratio 2.88 % 02/14/21 19:03 TSH 0.641 mlU/mL (0.270-4.200) 02/15/21 13:28 Free T4 0.87 ng/dL (0.76-1.46) 02/15/21 13:28 Ann/IV: Voiding Method Toilet Active Medications - Current Medications Current Medications: Generic Name Dose Route Start Last Admin Trade Name Freq PRN Reason Stop Dose Admin Acetaminophen 650 mg 02/14/21 22:16 Acetaminophen 325 Mg Tab PO Q4H PRN Pain MILD(1-3)/Fever >100.5/SAGE Arformoterol Tartrate 15 mcg 02/15/21 20:00 02/16/21 20:38 Arformoterol 15 Mcg/2 Ml Nebu IH 15 mcg Q12HRT [facility] Administration Aspirin 325 mg 02/15/21 13:00 02/16/21 10:12 Aspirin Ec 325 Mg Tab PO 325 mg QDAY [facility] Administration Atorvastatin Calcium 40 mg 02/15/21 22:00 02/16/21 21:57 Atorvastatin 40 Mg Tab PO 40 mg QHS [facility] Administration Budesonide 0.5 mg 02/16/21 12:40 02/16/21 20:38 Budesonide 0.5 Mg/2 Ml Nebu IH 0.5 mg Q12HRT [facility] Administration Clopidogrel Bisulfate 75 mg 02/16/21 10:00 02/16/21 10:12 Clopidogrel 75 Mg Tab PO 75 mg QDAY [facility] Administration Enoxaparin Sodium 90 mg 02/15/21 22:00 02/16/21 21:56 Enoxaparin 100 Mg/1 Ml Inj 1 mg/kg (90 mg) 90 mg SUB-Q Administration Q12HR [facility] Protocol Hydromorphone HCl 0.5 mg 02/14/21 22:16 Hydromorphone 1 Mg/1 Ml Inj IV Q3H PRN Pain , Severe (7-10) Sodium Chloride 500 mls @ 50 mls/hr 02/16/21 13:00 02/17/21 07:02 Nacl 0.45% IV 50 mls/hr DIRECT [facility]ATSON Administration Metoclopramide HCl 10 mg 02/14/21 22:16 Metoclopramide 10 Mg/2 Ml Inj IV Q6H PRN Nausea And Vomiting Montelukast Sodium 10 mg 02/15/21 15:00 02/17/21 07:05 Montelukast 10 Mg Tab PO Not Given BID WATSON Nitroglycerin 1 inch 02/15/21 14:00 02/17/21 07:02 Nitroglycerin 2% Oint 1 Gm TP Not Given QIDNTG [facility] Protocol Ondansetron HCl 4 mg 02/14/21 22:16 Ondansetron 4 Mg/2 Ml Inj IV Q8H PRN Nausea And Vomiting Oxycodone/Acetaminophen 1 tab 02/14/21 22:16 Oxycodone /Acetaminophen 5-325mg Tab PO Q6H PRN Pain, Moderate (4-6) Pantoprazole Sodium 40 mg 02/15/21 13:00 02/16/21 10:16 Pantoprazole 40 Mg Tab PO 40 mg QDAC [facility] Administration Sodium Chloride 10 ml 02/15/21 10:00 02/16/21 22:00 Sodium Chloride 0.9% 10 Ml Flush Syringe IV 10 ml BID WATSON Administration Sodium Chloride 10 ml 02/14/21 22:16 Sodium Chloride 0.9% 10 Ml Flush Syringe IV PRN PRN LINE FLUSH
[2021-02-17] MEDS: ARFORMOTEROL 15 MCG/2 ML NEBU IH SCH ×2 (08:47→21:21)
[2021-02-17] MEDS: BUDESONIDE 0.5 MG/2 ML NEBU IH SCH ×2 (08:47→21:21)
[2021-02-17] MEDS ORDERED: HEPARIN/NS 5000 UNIT/500ML 1,000 ML IR ONE (09:45)
[2021-02-17] MEDS ORDERED: CLOPIDOGREL 75 MG TAB ONE ×2 (10:06→11:58)
[2021-02-17] MEDS ORDERED: ASPIRIN 325 MG TAB ONE (10:06)
[2021-02-17] MEDS: fentaNYL 100 MCG/2 ML INJ ONE ×2 (10:38→11:10)
[2021-02-17] MEDS: MIDAZOLAM 2 MG/2 ML INJ ONE ×2 (10:39→11:10)
[2021-02-17] MEDS: HEPARIN 10,000 UNITS/10 ML VIAL ONE ×3 (10:39→11:24)
[2021-02-17] MEDS: LIDOCAINE (2%) 20 MG/1 ML VIAL 20 ML MDV INFILTRATI ONE ×2 (10:39→11:12)
[2021-02-17] MEDS: VERAPAMIL 5 MG/2 ML INJ ONE ×2 (10:40→11:13)
[2021-02-17] MEDS ORDERED: NITROGLYCERIN SYRINGE 3 ML ONE ×2 (10:41→11:41)
[2021-02-17 11:22] LABS: INR 1.04 (0.87-1.13)
[2021-02-17 11:23] LABS: Partial Thromboplastin Time 32.9 Sec. (24.2-36.6)
[2021-02-17 11:28] LABS: Alanine Aminotransferase 28 units/L (7-56); BUN/Creatinine Ratio 9; Blood Urea Nitrogen 10 mg/dL (9-20); Calcium 9.2 mg/dL (8.4-10.2); Hemolysis Index 2
[2021-02-17] MEDS ORDERED: ATROPINE 0.1% (1 MG/10 ML) CARDIAC SYRINGE ONE (11:31)
[2021-02-17] MEDS ORDERED: SODIUM CHLORIDE 0.9% 500 ML 0 ML ONE (11:32)
[2021-02-17] MEDS ORDERED: TIROFIBAN/NS 12,500 MCG/250 ML BAG IV ONE (11:44)
[2021-02-17] MEDS ORDERED: HEPARIN 10,000 UNITS/10 ML VIAL ONE (11:58)
[2021-02-17] MEDS ORDERED: HYDROcodone/ACETAMINOPHEN 5-325 MG TAB PO PRN (12:13)
--- NOTE | 2021-02-17 12:13 | Event Note ---
Date: 02/17/21 Cardiac catheterization completed via the right radial approach, no complications. We found three-vessel coronary artery disease and well-preserved left ventricular systolic function with ejection fraction 55 to 60%. 1. There was a complete, probably chronic occlusion of the distal right coronary artery, with a small caliber posterior descending branch filled by faint [id number] collaterals. Recommended for medical therapy. 2. We performed successful ad hoc angioplasty and stenting of the mid LAD 80% stenosis with excellent angiographic result. 3. We performed successful second vessel angioplasty and stenting of the mid circumflex 80% stenosis with excellent angiographic result. Drug-eluting stents were used in both LAD and circumflex.
[2021-02-17] MEDS ORDERED: SODIUM CHLORIDE 0.9% 1000 ML 1,000 ML IV SCH (12:15)
[2021-02-17] MEDS ORDERED: TIROFIBAN/NS 12,500 MCG/250 ML BAG IV SCH (13:00)
[2021-02-17] MEDS: ASPIRIN EC 325 MG TAB PO SCH (13:07)
[2021-02-17] MEDS: PANTOPRAZOLE 40 MG TAB PO SCH (13:09)
[2021-02-17] MEDS: CLOPIDOGREL 75 MG TAB PO SCH (13:11)
--- NOTE | 2021-02-17 13:19 | Cardiac Catherization Report ---
DATE OF SERVICE: 02/17/2021 CARDIAC CATHETERIZATION AND CORONARY ANGIOPLASTY REPORT REASON FOR OPERATION: The patient is a 60-year-old man, who presented with chest pain and elevated troponin levels, consistent with non-ST elevation myocardial infarction. A cardiac catheterization was recommended as part of an early invasive therapy. PROCEDURES PERFORMED: 1. Left heart catheterization. 2. Selective left and right coronary angiography. 3. Left ventricular angiography. 4. Coronary angioplasty and stenting of the mid LAD. 5. Second vessel coronary angioplasty and stenting of the mid circumflex artery. 6. Sedation time start 11:10, ended 11:55. The patient was prepped and draped in a sterile fashion after informed consent. The right radial cath site was prepped and draped after negative Eran's test. The right radial artery was entered using Seldinger technique followed by placement of a 6-[place] hydrophilic sheath. Routine radial cocktail was administered via the sheath. Selective left and right coronary angiography was performed using a 3.5 left Kenneth and 4 right Kenneth. The right Kenneth catheter was used for left ventricular angiography. The angiograms were reviewed. Left ventricular end-diastolic pressure was 19, following coronary angiography. Ascending aortic pressure 128/70. There was no significant pressure gradient on pullback across the aortic valve. CORONARY ANGIOGRAPHY: Left main coronary artery was free of significant disease. The left anterior descending artery contained an 80% stenosis of its mid segment, adjacent to the origin of a small to medium sized mid diagonal branch. The circumflex artery was a large caliber vessel that contained a long, 80% stenosis of its mid segment, after the origin of the mid obtuse marginal and leading to a large terminal and bifurcating obtuse marginal. The right coronary artery was dominant. The right coronary artery was occluded in its distal segment, just before the origin of the posterior descending branch. The age of this occlusion was indeterminate, but had the appearance of a possible chronic total occlusion. There was only faint collateralization of a very small caliber posterior descending branch. The left ventricular systolic function was well preserved, with ejection fraction 55-60%. CORONARY ANGIOPLASTY: After review of the angiograms, we recommended medical therapy for the probable, chronic total occlusion of the distal right coronary artery, feeding a very small caliber posterior descending branch, which was perfused by faint left to right collaterals. We then recommended ad-hoc coronary intervention to the severe lesions of the mid LAD and mid circumflex. We selected a 3.0 XB guiding catheter and advanced to the left coronary ostium. A 0.014 inch [employer] 50 guidewire was directed into the LAD across the lesional segment. Another [employer] 50 guidewire was directed into the mid diagonal branch, which originated from the lesional segment. In the primary stenting maneuver, we deployed a 3.0 x 15 mm drug-eluting stent across the lesion and inflated to optimal pressures. There was an excellent result at the lesional site, but because of the concern regarding possible mild distal edge dissection, another 2.75 x 8 mm stent was deployed overlapping with the distal segment of the first stent. After deployment of both stents, there was an excellent angiographic result, zero residual stenosis and PAULETTE 3 flow in both the LAD and the diagonal branch. There was mild ostial narrowing of the diagonal branch consistent with mild stent alf, but PAULETTE 3 flow was maintained. Due to the small caliber nature of this vessel, no additional intervention was performed to the mild ostial narrowing. We then turned our attention to the circumflex. The guidewire was then redirected into the circumflex, and across the lesional segment of the mid vessel. In another, primary stenting maneuver, we deployed a 4.0 x 15 mm drug-eluting stent, across the lesional segment and inflated to optimal pressures. Following stenting, there was an excellent angiographic result, zero residual stenosis and PAULETTE 3 flow in the circumflex system. The catheters and the wires were then removed, sheath removed and hemostasis achieved using a TR band. The patient was returned to the postprocedure unit in stable condition. There were no complications. CONCLUSION: 1. Three-vessel coronary artery disease. 2. Well-preserved left ventricular systolic function, ejection fraction 55-60%. 3. 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 4. Successful angioplasty and stenting of the mid LAD 80% stenosis. 5. Successful second vessel angioplasty and stenting of the mid vessel 80% stenosis of the circumflex. TID: [id number] RECEIPT: [id number] CA/PUN
[2021-02-18] MEDS: MONTELUKAST 10 MG TAB PO SCH ×2 (01:51→09:00)
[2021-02-18 05:11] LABS: Basophils % (Auto) 0.3 % (0.0-1.8); Eosinophils # (Auto) 0.1 K/mm3 (0.0-0.4); Eosinophils % (Auto) 0.9 % (0.0-4.3); Hematocrit 36.2 % (35.5-45.6); Lymphocytes # (Auto) 2.6 K/mm3 (1.2-5.4); Lymphocytes % (Auto) 32.5 % (13.4-35.0); Mean Corpuscular HGB Conc 33 % (32-34); Mean Corpuscular Volume 81 fl (84-94); Monocytes # (Auto) 0.8 K/mm3 (0.0-0.8); Monocytes % (Auto) 10.3 % (0.0-7.3); Platelet Count 115 K/mm3 (140-440); Red Blood Count 4.49 M/mm3 (3.65-5.03); Red Cell Distribution Width 13.6 % (13.2-15.2)
[2021-02-18 05:44] LABS: BUN/Creatinine Ratio 8; Blood Urea Nitrogen 8 mg/dL (9-20); Calcium 8.5 mg/dL (8.4-10.2); Hemolysis Index 6
[2021-02-18] MEDS: NITROGLYCERIN 2% OINT 1 GM TP SCH ×2 (06:15→09:02)
--- NOTE | 2021-02-18 08:27 | XRay Report ---
CHEST 1 VIEW INDICATION: post pci. COMPARISON: 02/14/2021 FINDINGS: Support devices: None. Heart: Within normal limits. Lungs/Pleura: No acute air space or interstitial disease. Additional findings: None. IMPRESSION: No acute findings. Signer Name: Star Christine Jr, MD Signed: 02/18/2021 8:23 AM Workstation Name: [id number]
[2021-02-18] MEDS: ARFORMOTEROL 15 MCG/2 ML NEBU IH SCH (08:55)
[2021-02-18] MEDS: BUDESONIDE 0.5 MG/2 ML NEBU IH SCH (08:55)
[2021-02-18] MEDS: PANTOPRAZOLE 40 MG TAB PO SCH (08:59)
[2021-02-18] MEDS: ASPIRIN EC 325 MG TAB PO SCH (09:00)
[2021-02-18] MEDS: CLOPIDOGREL 75 MG TAB PO SCH (09:00)
--- NOTE | 2021-02-18 09:33 | Progress Note ---
Assessment and Plan - Patient Problems (1) Non-ST elevation myocardial infarction (NSTEMI) Current Visit: Yes Status: Acute Plan to address problem: [facility] findings: three-vessel coronary artery disease 1. There was a complete, probably chronic occlusion of the distal right coronary artery, with a small caliber posterior descending branch filled by faint [id number] collaterals. Recommended for medical therapy. 2. Successful ad hoc angioplasty and stenting of the mid LAD 80% stenosis with drug eluting stents. 3. Successful second vessel angioplasty and stenting of the mid circumflex 80% stenosis with drug-eluting stents. 4. Well-preserved left ventricular systolic function with ejection fraction 55 to 60%. Continue medical therapy for coronary artery disease including plavix and aspirin therapy without interruption. Stable cardiac rodriguez for discharge with outpatient cardiac follow up in 5-7 days. Subjective Date of service: 02/18/21 Interval history: Patient is resting in bed and appears comfortable. He denies chest pain and unusual shortness of breath. Objective Vital Signs Temp Pulse Pulse Resp Resp BP BP 02/18/21 09:13 73 20 02/18/21 09:02 72 104/53 02/18/21 08:55 02/18/21 07:30 98.2 F 72 18 104/53 02/18/21 05:16 97.8 F 63 18 98/53 02/18/21 00:47 98.6 F 83 18 104/72 02/17/21 21:22 02/17/21 21:21 72 16 02/17/21 20:16 99.4 F 67 20 99/67 02/17/21 17:02 97.6 F 64 18 107/72 02/17/21 15:24 66 110/72 02/17/21 14:55 66 110/76 02/17/21 14:37 62 111/66 02/17/21 14:19 61 103/68 02/17/21 13:43 69 18 112/74 02/17/21 13:10 63 105/75 02/17/21 12:53 63 18 105/75 02/17/21 12:37 98.8 F 68 18 112/73 02/17/21 09:30 Pulse Ox 02/18/21 09:13 02/18/21 09:02 02/18/21 08:55 97 02/18/21 07:30 96 02/18/21 05:16 99 07/06/21 00:47 96 02/17/21 21:22 96 02/17/21 21:21 02/17/21 20:16 96 02/17/21 17:02 95 02/17/21 15:24 99 02/17/21 14:55 99 02/17/21 14:37 100 02/17/21 14:19 99 02/17/21 13:43 99 02/17/21 13:10 02/17/21 12:53 99 02/17/21 12:37 97 02/17/21 09:30 98 - Physical Examination General: No Apparent Distress HEENT: Positive: PERRL Neck: Positive: neck supple Cardiac: Positive: Reg Rate and Rhythm Lungs: Positive: Normal Breath Sounds Neuro: Positive: Grossly Intact Abdomen: Positive: Soft Incision: Cardiac Cath Site (right radial - no hematoma noted) Extremities: Absent: edema - Labs and Meds Cardiac Enzymes 02/17/21 Range/Units 10:27 AST 52 H (5-40) units/L Coagulation 02/17/21 Range/Units 10:27 PT 14.1 (12.2-14.9) Sec. INR 1.04 (0.87-1.13) APTT 32.9 (24.2-36.6) Sec. CBC 02/18/21 Range/Units 04:57 WBC 8.1 (4.5-11.0) K/mm3 RBC 4.49 (3.65-5.03) M/mm3 Hgb 12.0 (11.8-15.2) gm/dl Hct 36.2 (35.5-45.6) % Plt Count 115 L (140-440) K/mm3 Lymph # (Auto) 2.6 (1.2-5.4) K/mm3 [place] # (Auto) 0.8 (0.0-0.8) K/mm3 Eos # (Auto) 0.1 (0.0-0.4) K/mm3 Baso # (Auto) 0.0 (0.0-0.1) K/mm3 Comprehensive Metabolic Panel 02/17/21 02/18/21 Range/Units 10:27 04:57 Sodium 137 138 (137-145) mmol/L Potassium 3.8 3.9 (3.6-5.0) mmol/L Chloride 100.8 102.8 (98-107) mmol/L Carbon Dioxide 29 26 (22-30) mmol/L BUN 10 8 L (9-20) mg/dL Creatinine 1.1 1.0 (0.8-1.3) mg/dL Glucose 94 97 (75-100) mg/dL Calcium 9.2 8.5 (8.4-10.2) mg/dL AST 52 H (5-40) units/L ALT 28 (7-56) units/L Alkaline Phosphatase 101 (35-129) units/L Total Protein 6.8 (6.3-8.2) g/dL Albumin 4.0 (3.9-5) g/dL
[2021-02-18 12:46] VITALS: BP 94/49
--- NOTE | 2021-02-18 13:56 | Discharge Summary ---
Providers - Providers Date of Admission: 02/16/21 09:10 Date of discharge: 02/18/21 Attending physician: VIVIAN DE LEON 02/15/21 12:11 Consult to Physician [CONS] Routine Comment: Consulting Provider: RAPHAEL SANABRIA Physician Instructions: Reason For Exam: Non-ST elevation AK 02/17/21 Consult to Cardiac Rehabilitation [CONS] Routine Reason For Exam: post pci Primary care physician: ASSISTANT PROFESSOR OF CHEMISTRY Hospitalization Reason for admission: Chest pain of 1 day duration Condition: Stable Pertinent studies: Cardiac cath Chest x-ray Procedures: Left heart catheterization :three-vessel coronary artery disease and well- preserved left ventricular systolic function with ejection fraction 55 to 60%. Hospital course: Patient had left heart cath 02/17/2021 s/p Cardiac catheterization via the right radial approach, no complications. Found to have three-vessel coronary artery disease and well-preserved left ventricular systolic function with ejection fraction 55 to 60%. Chronic complete occlusion of distal RCA -medical management 80% stenosis mid LAD -ABELARDO placement 80% stenosis of mid circumflex-ABEALRDO placement Dual antiplatelet therapy with aspirin and Plavix, beta-blockers, GRACIELA inhibitors, nitrates and statins Low-cholesterol diet, exercise as tolerated and weight reduction. Patient advised to follow primary care physician, desk attendant upon discharge Original Note: Assessment and Plan Assessment and plan: --Non-ST elevation AK Current Visit: Yes Status: Acute Worsening troponin levels Aspirin, no beta-blockers due to bradycardia Heart rate in 50s, GRACIELA inhibitors, nitrates Statin and morphine Cardiology evaluated, optimize medications, left heart cath today N.p.o. from midnight --Bradycardia; Current Visit: Yes Status: Acute Heart rate in 50s, hold beta-blockers Thyroid panel reviewed --Dyslipidemia; Current Visit: Yes Status: Acute Lipitor, recommend low-cholesterol diet --GERD Current Visit: Yes Status: Acute IV Pepcid, supportive care --Obesity ; BMI 31.4 Current Visit: Yes Status: Acute Patient may need weight reduction when medically stable -- DVT prophylaxis Current Visit: Yes Status: Acute On heparin and GI prophylaxis Closely monitor the patient and adjust the management as needed Possible heart cath tomorrow, n.p.o. from midnight Follow cardiology recommendations Plan of care reviewed with the patient and his nurse 02/16/2021; non-ST elevation AK, worsening cardiac enzymes On therapeutic dose Lovenox, cardiology scheduled for left heart catheterization tomorrow Continue current management 02/17/2021; heart cath today Continue current cardiac meds If cath is negative and patient is stable may discharge home this evening Disposition per cardiology Disposition: DC-01 TO HOME OR SELFCARE Final Discharge Diagnosis (Prints w/discharge instructions): Triple-vessel coronary artery disease. s/p PCI/stents x3. Non-ST elevation AK. Dyslipidemia. Bradycardia resolved. GERD. Obesity BMI 31.0 Time spent for discharge: 35 min Core Measure Documentation - Palliative Care Palliative Care/ Comfort Measures: Not Applicable - Core Measures Any of the following diagnoses?: acute AK - Acute AK Discharge Requirements Aspirin at discharge: Yes GRACIELA/ARB for LVSD if EF <40%: Not Applicable Beta kathrin at discharge: Yes Statin for LDL = or >100 mg/dl on DC: Yes Exam - Constitutional Vitals: Temp Pulse Resp BP Pulse Ox 98.2 F 71 18 94/49 97 02/18/21 11:40 02/18/21 11:40 02/18/21 11:40 02/18/21 11:40 02/18/21 11:40 General appearance: Present: no acute distress, well-nourished - EENT Eyes: Present: PERRL, EOM intact - Neck Neck: Present: supple, normal ROM - Respiratory Respiratory effort: normal Respiratory: bilateral: diminished, negative: rales, rhonchi, wheezing - Cardiovascular Rhythm: regular Heart Sounds: Present: S1 & S2 - Extremities Extremities: no ischemia, No edema - Abdominal General gastrointestinal: Present: soft, non-tender, non-distended, normal bowel sounds - Integumentary Integumentary: Present: warm - Musculoskeletal Musculoskeletal: strength equal bilaterally - Psychiatric Psychiatric: appropriate mood/affect, cooperative - Neurologic Neurologic: CNII-XII intact, moves all extremities Plan Activity: no restrictions Diet: other (Cardiac diet) Additional Instructions: Advised to comply with medications, diet and follow-up visits. If you have worsening symptoms contact MD or go to emergency room as needed. Advised to follow with primary care physician, private desk attendant per schedule Follow up with: SANDRA DELGADILLO MD [Primary Care Provider] - 7 Days LESLIE CARRENO MD [Staff Physician] - 7 Days Prescriptions: Aspirin EC [Halfprin EC] 81 mg PO QDAY #30 tablet. ISOSORBIDE MONOnitrate [Imdur ER] 30 mg PO QDAY #30 tablet AtorvaSTATin [Lipitor] 40 mg PO QHS #30 tablet Metoprolol Xl [Metoprolol SUCCINATE ER TAB] 25 mg PO QDAY #60 tablet HYDROcodone/APAP 5-325 [[place] 5-325 mg TAB] 1 each PO BID PRN #14 tablet PRN Reason: Pain, Moderate (4-6) Clopidogrel [Plavix] 75 mg PO QDAY #30 tablet
[2021-02-19] MEDS ORDERED: METOPROLOL SUCCINATE XL 25 MG TAB PO SCH (10:00)
--- NOTE | 2021-02-19 17:43 | Electrocardiograph Report ---
[facility] Test Date: 2021-02-17 Test Time: 08:28:39 Pat Name: KACI HAWLEY Department: Room: A475 1 Gender: M Smt Operator: MOLLY : 1960 Requested By: EVENS CARRENO Order Number: [id number] Reading MD: Evens Carreno Measurements Intervals [place] Rate: 64 P: 62 MS: 135 QRS: -36 QRSD: 84 T: -51 QT: 423 QTc: 410 Interpretive Statements Sinus rhythm Atrial premature complexes Inferior infarct, age indeterminate No previous ECG available for comparison Electronically Signed On 02-19-2021 17:43:17 EDT by Evens Carreno
--- NOTE | 2021-02-19 17:53 | Electrocardiograph Report ---
[facility] Test Date: 2021-02-18 Test Time: 07:25:41 Pat Name: KACI HAWLEY Department: Room: A475 1 Gender: M Clinical Resource Director: SHEILA : 1960 Requested By: EVENS CARRENO Order Number: [id number] Reading MD: Evens Carreno Measurements Intervals [place] Rate: 68 P: 55 DC: 139 QRS: -23 QRSD: 112 T: -29 QT: 401 QTc: 426 Interpretive Statements Sinus rhythm Atrial premature complex Inferior infarct, age indeterminate Compared to ECG 02/17/2021 08:28:39 No significant changes Electronically Signed On 02-19-2021 17:53:14 EDT by Evens Carreno
== END 2021-02-18 15:22 | disposition home or self-care (01) | DRG 246 ==
LOC: ED 12:42 → 4A 16:08 → OBSVTOIN 02-16 09:10
PROVIDERS: ADMIT Internal Medicine; ATTEND Internal Medicine
PROC: 027136Z Dilation of Coronary Artery, Two Arteries with Three Drug-eluting Intraluminal Devices, Percutaneous Approach (ICD-10-PCS; principal; 2021-02-17)
PROC: 4A023N7 Measurement of Cardiac Sampling and Pressure, Left Heart, Percutaneous Approach (ICD-10-PCS; 2021-02-17)
PROC: B2111ZZ Fluoroscopy of Multiple Coronary Arteries using Low Osmolar Contrast (ICD-10-PCS; 2021-02-17)
PROC: B2151ZZ Fluoroscopy of Left Heart using Low Osmolar Contrast (ICD-10-PCS; 2021-02-17)
DX: I21.4 Non-ST elevation (NSTEMI) myocardial infarction (principal); I50.31 Acute diastolic (congestive) heart failure; R00.1 Bradycardia, unspecified; E78.5 Hyperlipidemia, unspecified; K21.9 Gastro-esophageal reflux disease without esophagitis; E66.9 Obesity, unspecified; J45.909 Unspecified asthma, uncomplicated; I25.118 Atherosclerotic heart disease of native coronary artery with other forms of angina pectoris; Z79.899 Other long term (current) drug therapy; Z68.31 Body mass index [BMI] 31.0-31.9, adult; Z95.5 Presence of coronary angioplasty implant and graft
CPT/HCPCS: 36415; 71045; 71046; 80048; 80053; 80061; 82550; 82553; 82962; 83036; 83735; 84439; 84443; 84484; 85014; 85018; 85025; 85610; 85730; 92928; 92929; 93005; 93458; 94640; G0378; A9270-GY; C1769; C1874; C1887; C1894; C9600; C9601; J0461; J1644; J1650; J2250; J3010; J3246; J7030; J7040; Q9967

== ENCOUNTER 2022-04-15 16:56 | Emergency (ER) | payer BC ==
[2022-04-15 17:44] VITALS: BP 113/61
[2022-04-15] MEDS ORDERED: HYDROcodone/ACETAMINOPHEN 5-325 MG TAB PO STA (21:06)
--- NOTE | 2022-04-15 22:31 | Emergency Department Report ---
ED Back Pain/Injury HPI - General Chief Complaint: Back Pain/Injury Stated Complaint: BACK PAIN Time Seen by Provider: 04/15/22 21:05 Source: patient Limitations: No Limitations - History of Present Illness MD Complaint: back pain -: Gradual Similar Symptoms Previously: Yes Place: home Radiation: none Severity: mild, moderate Quality: dull, aching Consistency: constant Improves With: none Worsens With: movement, sitting upright, walking Context: while lifting, turning/twisting, other (Reports work requires lifting pushing pulling may have tweaked the back at work) - Related Data Home Medications Medication Instructions Recorded Confirmed Last Taken Budesonide/Formoterol Fumarate 1 pfu INHALATION BID 02/15/21 02/15/21 2 Days Ago [Budesonide-Formoterol 160-4.5] ~02/13/21 Montelukast [Singulair] 10 mg PO BID 02/15/21 02/15/21 2 Days Ago ~02/13/21 Previous Rx's Medication Instructions Recorded Last Taken Type Aspirin EC [Halfprin EC] 81 mg PO QDAY #30 tablet. 02/18/21 Unknown Rx AtorvaSTATin [Lipitor] 40 mg PO QHS #30 tablet 02/18/21 Unknown Rx Clopidogrel [Plavix] 75 mg PO QDAY #30 tablet 02/18/21 Unknown Rx HYDROcodone/APAP 5-325 [Randolph 1 each PO BID PRN #14 tablet 02/18/21 Unknown Rx 5-325 mg TAB] ISOSORBIDE MONOnitrate [Imdur ER] 30 mg PO QDAY #30 tablet 02/18/21 Unknown Rx Metoprolol Xl [Metoprolol 25 mg PO QDAY #60 tablet 02/18/21 Unknown Rx SUCCINATE ER TAB] Ketorolac [Toradol] 10 mg PO Q6H PRN #15 tablet 04/15/22 Unknown Rx methOCARBAMOL [Robaxin TAB] 750 mg PO Q8H PRN #14 tablet 04/15/22 Unknown Rx Allergies Allergy/AdvReac Type Severity Reaction Status Date / Time No Known Allergies Allergy Unverified 02/14/21 12:44 ED Review of Systems ROS: Stated complaint: BACK PAIN Other details as noted in HPI Comment: All other systems reviewed and negative ED Past Medical Hx - Past Medical History Previous Medical History?: Yes Hx Asthma: Yes - Surgical History Past Surgical History?: No - Social History Smoking Status: Never Smoker - Medications Home Medications: Home Medications Medication Instructions Recorded Confirmed Last Taken Type Budesonide/Formoterol Fumarate 1 pfu INHALATION BID 02/15/21 02/15/21 2 Days Ago History [Budesonide-Formoterol 160-4.5] ~02/13/21 Montelukast [Singulair] 10 mg PO BID 02/15/21 02/15/21 2 Days Ago History ~02/13/21 Aspirin EC [Halfprin EC] 81 mg PO QDAY #30 tablet. 02/18/21 Unknown Rx AtorvaSTATin [Lipitor] 40 mg PO QHS #30 tablet 02/18/21 Unknown Rx Clopidogrel [Plavix] 75 mg PO QDAY #30 tablet 02/18/21 Unknown Rx HYDROcodone/APAP 5-325 [[place] 1 each PO BID PRN #14 tablet 02/18/21 Unknown Rx 5-325 mg TAB] ISOSORBIDE MONOnitrate [Imdur ER] 30 mg PO QDAY #30 tablet 02/18/21 Unknown Rx Metoprolol Xl [Metoprolol 25 mg PO QDAY #60 tablet 02/18/21 Unknown Rx SUCCINATE ER TAB] Ketorolac [Toradol] 10 mg PO Q6H PRN #15 tablet 04/15/22 Unknown Rx methOCARBAMOL [Robaxin TAB] 750 mg PO Q8H PRN #14 tablet 04/15/22 Unknown Rx ED Physical Exam - General Limitations: No Limitations General appearance: alert, in no apparent distress - Head Head exam: Present: atraumatic, normocephalic - Eye Eye exam: Present: normal appearance - ENT ENT exam: Present: mucous membranes moist - Neck Neck exam: Present: normal inspection - Respiratory Respiratory exam: Present: normal lung sounds bilaterally. Absent: respiratory distress - Cardiovascular Cardiovascular Exam: Present: regular rate, normal rhythm. Absent: systolic murmur, diastolic murmur, rubs, gallop - GI/Abdominal GI/Abdominal exam: Present: soft, normal bowel sounds - Rectal Rectal exam: Present: deferred - Extremities Exam Extremities exam: Present: normal inspection - Back Exam Back exam: Present: normal inspection, tenderness, muscle spasm, paraspinal tenderness, other (Full and motion negative leg raise). Absent: CVA tenderness (R), CVA tenderness (L), vertebral tenderness - Neurological Exam Neurological exam: Present: alert, oriented X3, CN II-XII intact, normal gait - Psychiatric Psychiatric exam: Present: normal affect, normal mood - Skin Skin exam: Present: warm, dry, intact, normal color. Absent: rash ED Course Vital Signs 04/15/22 17:43 Temperature 98.5 F Pulse Rate 54 L Respiratory 18 Rate Blood Pressure 113/61 [Left] O2 Sat by Pulse 99 Oximetry ED Medical Decision Making - Radiology Data Radiology results: report reviewed - Medical Decision Making Pt presents the emergency department complaining of back pain most consistent with lumbar strain back Pain Most Consistent with Strain/Contusion. Differential Diagnosis Includes Lumbar Go Versus Musculoskeletal Spasm, Strain Versus Sciatica. No Back Pain Red Flags on History or Physical. Presentation Not Consistent with Malignancy, Fracture, Cauda Equina, Abdominal Aortic Aneurysm, Viscus Perforation, Pulmonary Embolism, Renal Colic, Pyelonephritis. Patient reports no B symptoms, trauma trauma, incontinence, saddle anesthesia, distal weakness, urinary symptoms and is a febrile. Critical care attestation.: If time is entered above; I have spent that time in minutes in the direct care of this critically ill patient, excluding procedure time. ED Disposition Clinical Impression: Lower back pain Disposition: HOME / SELF CARE / HOMELESS Is pt being admited?: No Does the pt Need Aspirin: No Condition: Stable Instructions: Acute Back Pain, Adult, Low Back Sprain or Strain Rehab-SportsMed
== END 2022-04-15 23:05 | disposition home or self-care (01) ==
LOC: ED 16:56
DX: M54.50 Low back pain, unspecified (principal); J45.909 Unspecified asthma, uncomplicated
CPT/HCPCS: 99282